=== PATIENT | male | born 1965 | race Hispanic/Latino ===

== ENCOUNTER 2019-02-16 21:46 | Inpatient (IN) | payer OTHER ==
[~2019-02-16] VITALS: Ht 162.6 cm; Wt 54.7 kg
[2019-02-16] MEDS ORDERED: LIDOCAINE 2%-EPI 1:200,000 20 ML VIAL IJ ONE (23:13)
[2019-02-16] MEDS ORDERED: OCTYL 2-CYANOACRYLATE 1 EACH TP ONE (23:24)
[2019-02-17 01:43] LABS: BASOPHILS % (AUTO) 0.9 % (0.0-5.0); EOSINOPHILS % (AUTO) 0.1 % (0.0-8.0); HEMATOCRIT 39.6 % (42-54); LYMPHOCYTES % (AUTO) 15.2 % (21.0-51.0); MEAN CORPUSCULAR HEMOGLOBIN 33.9 pg (27.0-33.0); MEAN CORPUSCULAR VOLUME 96.9 fL (79-99); MONOCYTES % (AUTO) 5.5 % (3.0-13.0); NEUTROPHILS % (AUTO) 78.3 % (40.0-77.0); PLATELET COUNT (AUTO) 149 K/uL (130-400); RED BLOOD CELL COUNT(AUTO) 4.08 MIL/uL (4.50-6.20); RED CELL DISTRIBUTION WIDTH 14.8 % (11.0-15.5); WHITE BLOOD COUNT (AUTO) 5.9 K/uL (4.8-10.8)
[2019-02-17 01:55] LABS: INR 0.91 (0.85-1.15); PARTIAL THROMBOPLASTIN TIME 31.3 SEC (26.3-35.5); PROTHROMBIN TIME 9.6 SEC (9.6-11.6)
[2019-02-17 02:01] LABS: CREATININE 0.7 mg/dL (0.5-1.5); POTASSIUM 3.3 mmol/L (3.5-5.1)
[2019-02-17 02:07] LABS: ALBUMIN 3.8 g/dL (3.5-5.0); BILIRUBIN,TOTAL 0.3 mg/dL (0.2-1.0); TOTAL PROTEIN, SERUM 7.4 g/dL (6.0-8.3)
[2019-02-17] MEDS ORDERED: SODIUM CHLORIDE 0.9% 1000ML 1,000 ML IV ONE ×2 (02:19→03:30)
[2019-02-17 02:51] LABS: APPEARANCE,URINE Clear (CLEAR); BILIRUBIN,URINE Negative (NEGATIVE); COLOR,URINE Yellow (YELLOW); GLUCOSE, URINE (UA) Negative (NEGATIVE); KETONES,URINE Negative (NEGATIVE); LEUKOCYTE ESTERASE ,URINE Negative (NEGATIVE); NITRATE,URINE Negative (NEGATIVE); OCCULT BLOOD,URINE Negative (NEGATIVE); PH,URINE 6.5 (5.0-8.0); PROTEIN,URINE POS 2+ mg/dL (NEGATIVE); UROBILINOGEN,URINE 0.2 mg/dL (0.2-1.0)
[2019-02-17 03:00] LABS: AMPHET/METH SCREEN,URINE NEGATIVE (NEGATIVE); BARBITURATE SCREEN, URINE NEGATIVE (NEGATIVE); BENZODIAZEPINES SCREEN,URINE NEGATIVE (NEGATIVE); CANNABINOID SCREEN,URINE NEGATIVE (NEGATIVE); COCAINE SCREEN,URINE NEGATIVE (NEGATIVE); OPIATE SCREEN,URINE NEGATIVE (NEGATIVE); PHENCYCLIDINE SCREEN,URINE NEGATIVE (NEGATIVE)
[2019-02-17] MEDS ORDERED: SODIUM CHLORIDE 0.9% 1000ML 1,000 ML IV STA (03:23)
[2019-02-17] MEDS ORDERED: POTASSIUM CHLORIDE 20MEQ/100ML 100 ML IV PRN (03:30)
[2019-02-17] MEDS ORDERED: LORAZEPAM 2 MG/ML 1 ML VIAL IVP PRN ×2 (03:30)
[2019-02-17] MEDS ORDERED: ACETAMINOPHEN 325 MG TAB PO PRN (03:30)
[2019-02-17] MEDS ORDERED: PHARMACY COMMUNICATION MISC PRN (03:30)
[2019-02-17] MEDS ORDERED: PROMETHAZINE HCL 25 MG TABLET PO PRN (03:30)
[2019-02-17] MEDS ORDERED: ONDANSETRON HCL 4 MG/2 ML VIAL IV PRN (03:30)
[2019-02-17] MEDS ORDERED: MAGNESIUM 2GM PREMIX 50ML 50 ML IV PRN (03:30)
[2019-02-17] MEDS ORDERED: LIDOCAINE HCL-MPF 1% 2ML VIAL IVP PRN (03:30)
[2019-02-17] MEDS ORDERED: CHLORDIAZEPOXIDE HCL 25 MG CAP PO PRN ×2 (03:30)
[2019-02-17] MEDS ORDERED: ACETAMINOPHEN EXTRA STRENGTH 500 MG TABLET PO PRN (03:30)
[2019-02-17] MEDS ORDERED: NITROGLYCERIN 0.4 MG SL TAB SL PRN (03:30)
[2019-02-17 03:47] LABS: BACTERIA,URINE None Seen /HPF (None Seen); RBC,URINE 0-1 /HPF (0-1); SQUAMOUS EPITHELIAL CELL,UR 0-2 /HPF (0-2); WBC,URINE 0-1 /HPF (0-1)
[2019-02-17 03:55] LABS: MAGNESIUM 1.7 mg/dL (1.80-2.40); PHOSPHORUS 4.3 mg/dL (2.5-4.9)
--- NOTE | 2019-02-17 04:46 | NUR ---
ADMISSION. PT ADMITTED FROM ER INTO ROOM 403, PT AWAKE ALERT AND RESPONSIVE. PT WITH UNSTEADY GAIT, ALCOHOL WITHDRAWAL ASSESSMENT DONE. SUSAN OBSERVED TO RT SIDE OF FOREHEAD, OPEN TO AIR NO DRAINAGE OBSERVED. PT AND VISITOR AT BEDSIDE ORIENTED TO ROOM, CALL COBIAN WITHIN REACH, BED IN LOWEST POSITION, BED ALARM ON AND FUNCTIONING. Addendum: 02/17/19 at 0645 by PACO WHITNEY RN Amended: Links added.
[2019-02-17 04:49] VITALS: BP 154/105
[2019-02-17] MEDS: SODIUM CHLORIDE 0.9% 1000ML 1,000 ML IV SCH ×3 (05:58→21:11)
[2019-02-17 07:34] VITALS: BP 134/86
--- NOTE | 2019-02-17 08:00 | NUR ---
Patient awake, alert, oriented x3. Girlfriend at bedside. Denies any pain, no symptoms or signs of alcohol withdrawal observed. There is swelling to right side of the forehead and upper lip. The laceration to the head has 5 nicole intact, no bleeding.
--- NOTE | 2019-02-17 08:20 | NUR ---
Spoke to Dr Mcduffie regarding consult and he gave orders. Pt and his girlfriend in the room informed of orders.
[2019-02-17] MEDS ORDERED: PANTOPRAZOLE 40 MG/VIAL IVP SCH (08:30)
[2019-02-17] MEDS ORDERED: FAMOTIDINE/PF 20 MG/2 ML VIAL IV SCH (09:00)
[2019-02-17] MEDS: THIAMINE HCL 100 MG, FOLIC ACID 1 MG, M.V.I. IV [ADULT] 10 ML in SODIUM CHLORIDE 0.9% 1... IV SCH (09:41)
[2019-02-17 11:27] VITALS: BP 151/90
[2019-02-17 12:36] LABS: HEMATOCRIT 36.3 % (42-54)
--- NOTE | 2019-02-17 14:37 | NUR ---
cm note met with patient and states resides at home alone , is independent with adls and self care. and ambulation. no dme. discussed with pt importance of followup with md, and also avoidance of alcohol abuse. states he is aware of this and knows what he needs to do. pt verbalizes understanding. states dc plan is back to same home setting at time of dc. states no dc needs. Addendum: 02/17/19 at 1441 by ERICA ELIAS CM Amended: Links added.
[2019-02-17] MEDS: PANTOPRAZOLE 40 MG/VIAL IVP SCH ×2 (15:45→21:11)
--- NOTE | 2019-02-17 16:00 | NUR ---
The swelling to the forehead has decreased a lot, no signs or symptoms of alcohol withdrawal
[2019-02-17 16:03] VITALS: BP 163/97
[2019-02-17 17:53] LABS: HEMATOCRIT 35.6 % (42-54)
[2019-02-17 19:11] VITALS: BP 159/102
[2019-02-17] MEDS: POTASSIUM CHLORIDE 20 MEQ ERTAB PO SCH (21:11)
[2019-02-17 23:10] VITALS: BP 159/97
[2019-02-18 04:00] VITALS: BP 167/99
[2019-02-18 04:48] LABS: BASOPHILS % (AUTO) 0.6 % (0.0-5.0); EOSINOPHILS % (AUTO) 0.6 % (0.0-8.0); HEMATOCRIT 37.4 % (42-54); LYMPHOCYTES % (AUTO) 15.5 % (21.0-51.0); MEAN CORPUSCULAR HEMOGLOBIN 33.7 pg (27.0-33.0); MEAN CORPUSCULAR HGB CONC 34.7 g/dL (32.0-36.0); MEAN CORPUSCULAR VOLUME 97.3 fL (79-99); NEUTROPHILS % (AUTO) 74.3 % (40.0-77.0); PLATELET COUNT (AUTO) 140 K/uL (130-400); RED BLOOD CELL COUNT(AUTO) 3.84 MIL/uL (4.50-6.20); RED CELL DISTRIBUTION WIDTH 15.1 % (11.0-15.5); WHITE BLOOD COUNT (AUTO) 6.9 K/uL (4.8-10.8)
[2019-02-18 04:59] LABS: ALBUMIN 3.8 g/dL (3.5-5.0); BILIRUBIN,TOTAL 0.9 mg/dL (0.2-1.0); CREATININE 0.8 mg/dL (0.5-1.5); MAGNESIUM 1.9 mg/dL (1.80-2.40); PHOSPHORUS 2.3 mg/dL (2.5-4.9); POTASSIUM 3.5 mmol/L (3.5-5.1); TOTAL PROTEIN, SERUM 7.5 g/dL (6.0-8.3)
[2019-02-18] MEDS: SODIUM CHLORIDE 0.9% 1000ML 1,000 ML IV SCH ×2 (05:55→20:47)
[2019-02-18] MEDS ORDERED: HYDRALAZINE HCL 20 MG/ML VIAL ONE (06:12)
[2019-02-18] MEDS ORDERED: HYDRALAZINE HCL 20 MG/ML VIAL IM PRN (06:15)
--- NOTE | 2019-02-18 06:15 | NUR ---
PT BP ASSESSED MANUALLY 174/104,NO C/O PAIN OR DISCOMFORT AT THIS TIME. PT RT UPPER EYE LID OBSERVED SWOLLEN AND REDDISH, PT STATED IT STARTED GETTING LIKE THAT THROUGHOUT THE MORNING. SALGADO NP MADE AWARE OR PT BP AND SWELLING AND COLORATION TO EYE. NEW ORDERS RECEIVED (REFER TO EMR).
[2019-02-18] MEDS ORDERED: PANTOPRAZOLE SODIUM 40 MG TABLET.DR PO ONE (08:14)
[2019-02-18 08:19] VITALS: BP 135/82
[2019-02-18] MEDS: LISINOPRIL 20 MG TABLET PO SCH (08:20)
[2019-02-18] MEDS: POTASSIUM CHLORIDE 20 MEQ ERTAB PO SCH ×2 (08:21→20:47)
[2019-02-18] MEDS: PANTOPRAZOLE 40 MG/VIAL IVP SCH ×2 (08:21→20:42)
[2019-02-18] MEDS: THIAMINE HCL 100 MG, FOLIC ACID 1 MG, M.V.I. IV [ADULT] 10 ML in SODIUM CHLORIDE 0.9% 1... IV SCH (09:52)
[2019-02-18] MEDS ORDERED: HYDRALAZINE HCL 20 MG/ML VIAL IV PRN (12:15)
[2019-02-18 12:38] VITALS: BP 130/86
[2019-02-18 16:18] VITALS: BP 120/71
[2019-02-18 19:25] VITALS: BP 132/74
[2019-02-19] VITALS: BP 136/88
[2019-02-19 03:45] VITALS: BP 129/77
[2019-02-19 04:29] LABS: HEMATOCRIT 31.4 % (42-54); MEAN CORPUSCULAR HEMOGLOBIN 34.7 pg (27.0-33.0); MEAN CORPUSCULAR HGB CONC 35.6 g/dL (32.0-36.0); MEAN CORPUSCULAR VOLUME 97.5 fL (79-99); PLATELET COUNT (AUTO) 99 K/uL (130-400); RED BLOOD CELL COUNT(AUTO) 3.22 MIL/uL (4.50-6.20); RED CELL DISTRIBUTION WIDTH 14.9 % (11.0-15.5); WHITE BLOOD COUNT (AUTO) 5.1 K/uL (4.8-10.8)
[2019-02-19 05:00] LABS: CREATININE 0.8 mg/dL (0.5-1.5); POTASSIUM 3.8 mmol/L (3.5-5.1)
[2019-02-19 08:10] VITALS: BP 136/82
[2019-02-19] MEDS: THIAMINE HCL 100 MG, FOLIC ACID 1 MG, M.V.I. IV [ADULT] 10 ML in SODIUM CHLORIDE 0.9% 1... IV SCH (09:21)
[2019-02-19] MEDS: PANTOPRAZOLE 40 MG/VIAL IVP SCH (09:22)
[2019-02-19] MEDS: LISINOPRIL 20 MG TABLET PO SCH (09:22)
[2019-02-19] MEDS: POTASSIUM CHLORIDE 20 MEQ ERTAB PO SCH ×2 (09:23→15:36)
[2019-02-19] MEDS: SODIUM CHLORIDE 0.9% 1000ML 1,000 ML IV SCH (09:44)
[2019-02-19] MEDS ORDERED: FOLI1TAB15 PO (12:09)
[2019-02-19] MEDS ORDERED: THIA100T91 PO (12:09)
[2019-02-19] MEDS ORDERED: THIAMINE HCL 100 MG TABLET PO SCH ×2 (12:45→14:15)
[2019-02-19 12:51] VITALS: BP 153/82
[2019-02-19 16:34] VITALS: BP 151/85
[2019-02-19] MEDS ORDERED: LISI-613 PO (17:28)
[2019-02-20] MEDS ORDERED: FOLIC ACID 1 MG TABLET PO SCH (12:00)
== END 2019-02-19 19:18 | disposition home or self-care (01) | DRG 580 ==
LOC: EDH 21:46 → EDHIP 02-17 03:32 → 4AH 02-17 04:16
PROVIDERS: ADMIT Hospitalist; ATTEND Hospitalist
PROC: 0WQ0XZZ Repair Head, External Approach (ICD-10-PCS; principal; 2019-02-17)
DX: S01.91XA Laceration without foreign body of unspecified part of head, initial encounter (principal); K92.0 Hematemesis; E87.1 Hypo-osmolality and hyponatremia; F10.239 Alcohol dependence with withdrawal, unspecified; E46 Unspecified protein-calorie malnutrition; E83.42 Hypomagnesemia; E87.6 Hypokalemia; I10 Essential (primary) hypertension; F10.229 Alcohol dependence with intoxication, unspecified; J32.0 Chronic maxillary sinusitis; J32.2 Chronic ethmoidal sinusitis; W10.9XXA Fall (on) (from) unspecified stairs and steps, initial encounter; Y90.8 Blood alcohol level of 240 mg/100 ml or more; Z68.20 Body mass index [BMI] 20.0-20.9, adult; Y93.89 Activity, other specified; Y92.098 Other place in other non-institutional residence as the place of occurrence of the external cause; Y99.8 Other external cause status; Z82.49 Family history of ischemic heart disease and other diseases of the circulatory system
CPT/HCPCS: 36415; 70450; 70486; 80048; 80053; 80305; 81001; 83690; 83735; 84100; 84132; 85014; 85018; 85025; 85027; 85610; 85730; 86850; 86900; 86901; 93005; C9113; G0378; G0480; J0360; J3411; J3475; J3480; J3490; J7030

== ENCOUNTER 2019-03-02 10:22 | Emergency (ER) | payer OTHER ==
[~2019-03-02 10:22] MED LIST: FOLI1TAB15 PO; LISI-613 PO; THIA100T91 PO
== END 2019-03-02 10:48 | disposition home or self-care (01) ==
LOC: EDH 10:22
DX: S01.81XD Laceration without foreign body of other part of head, subsequent encounter (principal); I10 Essential (primary) hypertension; X58.XXXD Exposure to other specified factors, subsequent encounter
CPT/HCPCS: 99281